=== PATIENT | female | born 1975 | race Caucasian/White ===

== ENCOUNTER 2016-07-18 11:45 | Day surgery (SDC) | payer OTHER ==
[2016-07-11 11:10] LABS: HEMATOCRIT 42.9 % (36.0-47.0); HEMOGLOBIN 14.6 g/dL (12.0-15.5); HGB HCT DIFFERENCE 0.9; MEAN CORPUSCULAR HEMOGLOBIN 29.5 pg (27.0-33.4); MEAN CORPUSCULAR VOLUME 87 fl (80-97); RED BLOOD COUNT 4.93 10^6/uL (3.72-5.28); RED CELL DISTRIBUTION WIDTH 12.6 % (11.5-14.0); WHITE BLOOD COUNT 5.3 10^3/uL (4.0-10.5)
[~2016-07-18 11:45] MED LIST: CEFAZOLIN 2 GM/D5W RTU 2 GM/50 ML RTUPB IV PRN; GABAPENTIN 400 MG CAPSULE PO PRN; LACTATED RINGERS 1000 ML IV PRN; LIDOCAINE 0.5% INJ-PF (5 MG/ML) 50 ML SDV SUBCUT PRN
[2016-07-18 12:27] LABS: APPEARANCE,URINE CLEAR; BILIRUBIN,URINE NEGATIVE (NEGATIVE); GLUCOSE, URINE NEGATIVE (NEGATIVE); KETONES,URINE TRACE mg/dL (NEGATIVE); LEUKOCYTE ESTERASE,URINE NEGATIVE (NEGATIVE); NITRITE,URINE NEGATIVE (NEGATIVE); PROTEIN,URINE NEGATIVE (NEGATIVE); URINE SPECIFIC GRAVITY 1.021; UROBILINOGEN,URINE NEGATIVE mg/dL (<2.0)
[2016-07-18 12:36] LABS: ALANINE AMINOTRANSFERASE 31 U/L (9-52); ALBUMIN 4.3 g/dL (3.5-5.0); ALKALINE PHOSPHATASE 64 U/L (38-126); ANION GAP 11 (5-19); ASPARTATE AMINO TRANSFERASE 22 U/L (14-36); BILIRUBIN,TOTAL 0.4 mg/dL (0.2-1.3); BLOOD UREA NITROGEN 15 mg/dL (7-20); CALCIUM 9.7 mg/dL (8.4-10.2); CARBON DIOXIDE 26 mmol/L (22-30); CHLORIDE 105 mmol/L (98-107); CREATININE RESULT 0.69 mg/dL (0.52-1.25); GLUCOSE 81 mg/dL (75-110); POTASSIUM 3.9 mmol/L (3.6-5.0); SODIUM 141.8 mmol/L (137-145); TOTAL PROTEIN 7.6 g/dL (6.3-8.2)
[2016-07-18] MEDS ORDERED: FENTANYL CITRATE INJ/PF 100 MCG/2 ML AMPUL ONE ×2 (13:08→13:09)
[2016-07-18] MEDS ORDERED: ACETAMINOPHEN 100 ML IV ONE (13:09)
[2016-07-18] MEDS ORDERED: PROPOFOL INJ 200 MG/20 ML VIAL IV ONE (13:09)
[2016-07-18] MEDS ORDERED: MIDAZOLAM 2 MG/2 ML INJ ONE (13:09)
[2016-07-18] MEDS ORDERED: DEXMEDETOMIDINE INJ 80 MCG/20 ML VIAL IV ONE (13:10)
[2016-07-18] MEDS ORDERED: MORPHINE SULFATE 10 MG/ML INJ ONE (13:10)
[2016-07-18] MEDS ORDERED: BUPIVACAINE HCL 0.25 % INJ/PF (2.5 MG/1 ML) 30 ML VIAL ONE (13:35)
[2016-07-18] MEDS ORDERED: SCOPOLAMINE HYDROBROMIDE 1.5 MG PATCH.TD72 ONE (14:13)
[2016-07-18] MEDS ORDERED: PROMETHAZINE HCL INJ 25 MG/1 ML VIAL IV PRN ×3 (14:40→15:39)
[2016-07-18] MEDS ORDERED: MORPHINE SULFATE 10 MG/ML INJ IV PRN ×2 (14:40→15:37)
[2016-07-18] MEDS ORDERED: FENTANYL CITRATE INJ/PF 100 MCG/2 ML AMPUL IV PRN ×3 (14:40)
[2016-07-18] MEDS ORDERED: DIPHENHYDRAMINE HCL 50 MG/ML VIAL IV PRN (14:40)
[2016-07-18] MEDS ORDERED: OXYCODONE-ACETAMINOPHEN 5-325 MG TABLET PO PRN ×3 (14:40→15:36)
[2016-07-18] MEDS ORDERED: MEPERIDINE HCL/PF INJ 25 MG/1 ML DISP.SYRIN IV PRN (14:40)
[2016-07-18] MEDS ORDERED: GLYCOPYRROLATE INJ 0.4 MG/2 ML VIAL ONE (15:32)
[2016-07-18] MEDS ORDERED: ONDANSETRON HCL INJ/PF 4 MG/2 ML SDV ONE (15:32)
[2016-07-18] MEDS ORDERED: NEOSTIGMINE METHYLSULFATE 10 MG/10 ML VIAL ONE (15:32)
[2016-07-18] MEDS ORDERED: ROCURONIUM BROMIDE INJ 50 MG/5 ML VIAL IV ONE (15:32)
[2016-07-18] MEDS ORDERED: SUCCINYLCHOLINE CHLORIDE INJ 200 MG/10 ML VIAL ONE (15:32)
[2016-07-18] MEDS ORDERED: DEXAMETHASONE SOD PHOSPHATE INJ 4 MG/1 ML VIAL ONE (15:32)
[2016-07-18] MEDS ORDERED: LIDOCAINE 2% INJ-PF (20 MG/ML) 10 ML AMPUL ONE (15:32)
--- NOTE | 2016-07-18 15:32 | OPERATIVE REPORT E ---
Operative Report NAME: CM FARIAS : 1975 AGE: 40Y DATE OF SURGERY: 07/18/2016 ROOM: PREOPERATIVE DIAGNOSIS: Desires permanent sterilization. POSTOPERATIVE DIAGNOSIS: Desires permanent sterilization. SURGEON: Milly Morse MD. ESTIMATED BLOOD LOSS: 10 mL. URINE OUTPUT: 350 mL. COMPLICATIONS: None. SPECIMEN: Bilateral fallopian tubes. DISPOSITION: To PACU and then home later today. FLUIDS: 1100 mL. INDICATIONS: The patient is a 40-year-old, 2, para 2, 0-0-2, who desires permanent sterilization. The patient was consented and counseled on the procedure risks including but not limited to bleeding, infection, injury to surrounding organs or tissue including bowel or bladder, need for transfusion, and possible need for exploratory laparotomy. The patient understood and agreed to proceed with the procedure. PROCEDURE: The patient was taken to the operating room where general anesthesia was established. She had received antibiotics 2 gram of IV preoperatively. The patient was prepped and draped in the normal sterile fashion in the dorsal lithotomy position. Montesinos catheter was inserted. Speculum was inserted. Anterior lip of the cervix was grasped with a single-tooth tenaculum, and an Chance manipulator was inserted. Speculum was removed. Attention was turned to the abdomen where a 5 mm infraumbilical incision was performed after injecting local bupivacaine 0.25%. After the 5 mm incision was done with the scalpel, the Veress needle introduced carefully. Insufflation of the abdomen was performed. A 5 mm trocar was placed with the laparoscope in place under direct visualization. Intraperitoneal placement was confirmed. Carbon dioxide was used to insufflate the abdomen. Two additional ports were inserted, one in the left lower quadrant and one in the mid point. They were both 5 mm, of course after injection with bupivacaine as a local, they were both 5 mm incisions and both were inserted under direct visualization. Fimbriated end on the right fallopian tube was grasped with the pickups with the grasper and cauterized with the LigaSure and transected all the way from the fimbriated end all the way to the cornual region and was passed through the 5 mm trocar without any difficulty. On the contralateral side, the fimbriated end on the left side was grasped, cauterized with a LigaSure and transected all the way from the mesosalpinx all the way to the cornual region without any difficulty, and it was obtained through the 5 mm trocar. Hemostasis was noted to be on both sides. Ureters were well outside the surgical field at all times. They both were visualized and appeared to be normal. Both ovaries appeared to be normal, and the uterus appeared to be normal in contour. No signs of fibroids or any other anomalies from above. At this point, the trocars were removed, abdomen was desufflated, and the incisions were re-approximated with a 4-0 Monocryl. Dermabond was applied on top of it. Speculum exam was performed. The Chance was removed. The tenaculum site was oozing. Silver nitrate was used to obtain excellent hemostasis on the tenaculum site, then the speculum was removed. The Montesinos catheter was removed. The patient had complete hemostasis inside of her abdomen and vaginally from below from the tenaculum sites at all times. The patient tolerated the procedure well. Sponge, lap, and needle counts were correct x2. The patient was taken to the recovery room in a stable condition. DICTATING PHYSICIAN: Milly Morse MD [id number] PHY#: [id number] ID: [id number] JOB#: [id number] ACCT: [id number] cc:Milly Morse >
[2016-07-18] MEDS ORDERED: ONDANSETRON HCL INJ/PF 4 MG/2 ML SDV IV PRN (15:38)
[2016-07-18 17:34] VITALS: BP 94/56
== END 2016-07-18 17:25 | disposition home or self-care (01) ==
LOC: OROUT 11:45
PROVIDERS: ATTEND Obstetrics & Gynecology
PROC: 0UT74ZZ Resection of Bilateral Fallopian Tubes, Percutaneous Endoscopic Approach (ICD-10-PCS; principal; 2016-07-18 13:30)
DX: Z30.2 Encounter for sterilization (principal); Z98.51 Tubal ligation status; Z88.1 Allergy status to other antibiotic agents; Z79.899 Other long term (current) drug therapy
CPT/HCPCS: 86900; 86901; 36415 ×2; 86850; 85027; 81025; 80053; 81001; 88302 ×2; 58661; J2250; J3490 ×3; J1100; J3010; J0330; J2405; J2704; J0690; J0131; J2270